=== PATIENT | female | born 1975 | race African-American/Black ===

== ENCOUNTER 2016-06-13 14:16 | Emergency (ER) | payer OTHER ==
[~2016-06-13] VITALS: Ht 170.2 cm; Wt 81.2 kg
[~2016-06-13 14:16] MED LIST: FIORIC PO; TRUVTAB2 PO; [UNRECOGNIZED DRUG - CODE] PO
[2016-06-13 14:26] VITALS: BP 119/83; PULSE 100; RESP 18; TEMP 99; O2SAT 98
[2016-06-13] MEDS ORDERED: INTE100T PO (14:40)
[2016-06-13] MEDS ORDERED: EMTR1TAB5 PO (14:40)
[2016-06-13] MEDS ORDERED: PROCHLORPERAZINE INJ 10 MG/2 ML VIAL IVP ONE (14:45)
[2016-06-13] MEDS ORDERED: SODIUM CHLORIDE 0.9% FLUSH 5 ML FLUSH IVF PRN (14:45)
[2016-06-13] MEDS ORDERED: diphenhydrAMINE HCL 50 MG/ML VIAL IVP ONE (14:45)
--- NOTE | 2016-06-13 15:06 | PD ---
HPI . Headache Chief Complaint: Headache Time Seen by Provider: 14:31 Travel History International Travel<30 days: No Contact w/Intl Traveler<30days: No Traveled to known affect area: No History of Present Illness HPI Patient presents complaining with headache. She states that she has daily headaches associated with dizziness which she describes as a spinning sensation. She reports exacerbation of her headaches when she suffered a head injury over a year ago. She states that her headaches are worse on some days than others. She states that it has been worse the last 3 days. It is associated with photophobia. She has not tried any fuqe-qtt-zkichgd medication for her headache. She states that the dizziness is worse when she moves her head and better if she is still. [facility] Past Medical History Autoimmune Disease: Yes (HIV+/2007) Blood Disorders: No Anxiety: No Depression: No Cancer: No Cardiovascular Problems: No Chemotherapy: No Diminished Hearing: No Endocrine: No Genitourinary: No Headaches: Yes Immune Disorder: Yes (HIV) Musculoskeletal: No Neurologic: Yes (SCIATICA) Psychiatric: No Reproductive: No Respiratory: No Immunizations Current: Yes Migraines: Yes Radiation Therapy: No Tetanus Vaccination: < 5 Years Influenza Vaccination: Yes ?: Not : 6 Para: 4 : 2 Ovarian Cysts: Yes (LEFT OVARY REMOVED 2003) Tubal Ligation: Yes Past Surgical History Abdominal Surgery: Yes ([facility] APPY 08-06-09) Appendectomy: Yes Hysterectomy: Yes Other Surgery: Yes Social History Alcohol Use: Yes (SOCIAL) Tobacco Use: Yes (1-2 CIG DAILY) Substance Use: No Allergies-Medications (Allergen,Severity, Reaction): Coded Allergies: No Known Allergies (Verified , 06/13/16) Reported Meds & Prescriptions Reported Meds & Active Scripts Active Reported Intelence (Etravirine) 100 Mg Tab 100 Mg PO DAILY Truvada (Emtricitabine-Tenofovir Disoproxil Fumarate) 100-150 Mg Tab 1 Tab PO DAILY Review of Systems Except as stated in HPI: all other systems reviewed are Neg General / Constitutional: No: Fever, Chills Eyes: Positive: Photophobia, No: Blurred Vision HENT: Positive: Headaches, Vertigo Cardiovascular: No: Chest Pain or Discomfort Gastrointestinal: Positive: Nausea, No: Vomiting, Diarrhea Physical Exam Narrative GENERAL: Tearful. SKIN: Warm and dry. HEAD: Atraumatic. Normocephalic. EYES: Pupils equal and round. Extraocular motions are intact. ENT: No nasal bleeding or discharge. Mucous membranes pink and moist. NECK: Trachea midline. Neck is supple. CARDIOVASCULAR: Regular rate and rhythm. RESPIRATORY: No accessory muscle use. MUSCULOSKELETAL: No obvious deformities. No edema. NEUROLOGICAL: Awake and alert. No obvious cranial nerve deficits. Motor grossly within normal limits. Normal speech. Xhdjoh-wgod-hfcfpp exam was intact. PSYCHIATRIC: Appropriate mood and affect; insight and judgment normal. Data Data Last Documented VS Vital Signs Date Time Temp Pulse Resp B/P Pulse Ox O2 Delivery O2 Flow Rate FiO2 06/13/16 14:26 99.0 100 18 119/83 98 Orders Iv Access Insert/Monitor (06/13/16 14:31) Sodium Chloride 0.9% Flush (Ns Flush) (06/13/16 14:45) Prochlorperazine Inj (Compazine Inj) (06/13/16 14:45) Diphenhydramine Inj (Benadryl Inj) (06/13/16 14:45) MDM Medical Decision Making Medical Screen Exam Complete: Yes Emergency Medical Condition: Yes Medical Record Reviewed: Yes (patient was seen here in November 2015 with virtually identical complaints. She had a head CT done at that time which was negative. I was unable to find a record related to a visit for a head injury.) Differential Diagnosis Differential diagnosis of headache includes but is not limited to migraine, muscle contraction headache, brain tumor, brain bleed Narrative Course Patient presents complaining of headache. She describes daily headaches which have been worse the last 3 days. Patient reports improvement in her headache. Diagnosis Primary Impression: Headache Qualified Code: R51 - Chronic intractable headache, unspecified headache type Additional Impression: Vertigo Patient Instructions: General Headache (ED), General Instructions, Vertigo (DC) Med/Other Pt SpecificInfo: Prescription(s) given Scripts Meclizine 25 Mg Tab25 Mg PO TID PRN (VERTIGO) #30 TAB Ref 0 Prov:Melissa Meadows MD 06/13/16 Sadcdrzoil-Wvkdhqwzhfdxb-Qktskohu (Fioricet)50-300-40 Mg Cap1 Cap PO Q4H PRN ( HEADACHE) #12 CAP Ref 0 Prov:Melissa Meadows MD 06/13/16 Disposition: 01 DISCHARGE HOME Condition: Stable Melissa Meadows MD Jun 13, 2016 15:06
[2016-06-13] MEDS ORDERED: BUTA1CAP PO (16:19)
[2016-06-13] MEDS ORDERED: MECL-62 PO (16:19)
[2016-06-13 17:23] VITALS: BP 120/84
== END 2016-06-13 17:25 | disposition home or self-care (01) ==
LOC: PHED 14:16
DX: R51 Headache (principal); R42 Dizziness and giddiness; H53.149 Visual discomfort, unspecified; F17.210 Nicotine dependence, cigarettes, uncomplicated; Z21 Asymptomatic human immunodeficiency virus [HIV] infection status
CPT/HCPCS: 96374; 96375; 99283; J0780; J1200

== ENCOUNTER 2017-03-15 19:45 | Emergency (ER) | payer OTHER ==
[~2017-03-15] VITALS: Ht 170.2 cm; Wt 75.6 kg
[~2017-03-15 19:45] MED LIST changes: +BUTA1CAP PO; +EMTR1TAB5 PO; -FIORIC PO; +MECL-62 PO; -TRUVTAB2 PO
[2017-03-15 19:52] VITALS: BP 151/97; PULSE 91; RESP 22; TEMP 98.9; O2SAT 97
[2017-03-15] MEDS ORDERED: TOPI100 PO (20:05)
[2017-03-15] MEDS ORDERED: ZITHTAB PO (20:12)
[2017-03-15] MEDS ORDERED: VENTAER INH (20:12)
--- NOTE | 2017-03-15 20:17 | PD ---
HPI Chief Complaint: Respiratory Symptoms Time Seen by Provider: 20:03 Travel History International Travel<30 days: Yes Contact w/Intl Traveler<30days: Yes Name of Country Traveled to: [facility] Traveled to known affect area: No History of Present Illness HPI The patient was seen and examined in the presence of the nurse. This patient complains of some congestion and runny nose and wheezing and dry cough. No shortness of breath or fever. She has history of HIV she reports is well- controlled on antivirals. Smoking 3 weeks ago. No alleviating factors PFSH Past Medical History Autoimmune Disease: Yes (HIV+/2007) Blood Disorders: No Anxiety: No Depression: No Cancer: No Cardiovascular Problems: No Chemotherapy: No Diminished Hearing: No Endocrine: No Genitourinary: No Headaches: Yes Immune Disorder: Yes (HIV) Musculoskeletal: No Neurologic: Yes (SCIATICA) Psychiatric: No Reproductive: No Respiratory: No Immunizations Current: Yes Migraines: Yes Radiation Therapy: No : 6 Para: 4 : 2 Ovarian Cysts: Yes (LEFT OVARY REMOVED 2003) Tubal Ligation: Yes Past Surgical History Abdominal Surgery: Yes ([facility] APPY 08-06-09) Appendectomy: Yes Hysterectomy: Yes Other Surgery: Yes Social History Alcohol Use: Yes (SOCIAL) Tobacco Use: Yes (1-2 CIG DAILY) Substance Use: No Allergies-Medications (Allergen,Severity, Reaction): Coded Allergies: No Known Allergies (Verified Adverse Reaction, Unknown, 03/15/17) Reported Meds & Prescriptions Reported Meds & Active Scripts Active Zithromax Z-Cabrera (Azithromycin) 250 Mg Dspk 250 Mg PO DIRECTED 500 MG (2 tabs) day 1, then 1 tab days 2-5. Ventolin Hfa 18 GM Inh (Albuterol Sulfate) 90 Mcg/Act Aer 2 Puff INH Q6H PRN Meclizine (Meclizine HCl) 25 Mg Tab 25 Mg PO TID PRN Reported Topamax (Topiramate) 100 Mg Tab 100 Mg PO BID Intelence (Etravirine) 100 Mg Tab 100 Mg PO DAILY Truvada (Emtricitabine-Tenofovir Disoproxil Fumarate) 100-150 Mg Tab 1 Tab PO DAILY Review of Systems General / Constitutional: No: Fever Cardiovascular: No: Chest Pain or Discomfort Respiratory: Positive: Cough Gastrointestinal: No: Vomiting Physical Exam Narrative GENERAL: Well-nourished, well-developed patient in no apparent distress. SKIN: Focused skin assessment reveals no rash and nodules. Skin is Warm and dry. HEAD: Atraumatic. Normocephalic. EYES: Pupils equal and round. No scleral icterus. No injection or drainage. ENT: No nasal bleeding or discharge. Mucous membranes pink and moist. NECK: Trachea midline. No JVD. CARDIOVASCULAR: Regular rate and rhythm. No murmur appreciated. RESPIRATORY: No accessory muscle use. Clear to auscultation. Breath sounds equal bilaterally. GASTROINTESTINAL: Abdomen soft, non-tender, nondistended. Hepatic and splenic margins not palpable. MUSCULOSKELETAL: No obvious deformities. No clubbing. No cyanosis. No edema. NEUROLOGICAL: Awake and alert. No obvious cranial nerve deficits. Motor grossly within normal limits. Normal speech. PSYCHIATRIC: Appropriate mood and affect; insight and judgment normal. Data Data Last Documented VS Vital Signs Date Time Temp Pulse Resp B/P (MAP) Pulse Ox O2 Delivery O2 Flow Rate FiO2 03/15/17 19:52 98.9 91 22 151/97 (115) 97 MDM Medical Decision Making Medical Screen Exam Complete: Yes Emergency Medical Condition: Yes Medical Record Reviewed: Yes Differential Diagnosis Bronchitis, pneumonia, URI Narrative Course I have reviewed the patient's electronic medical record. Patient is clinically well. Saturations are 100% room air with clear lungs. She is afebrile Likely has viral bronchitis but given her immune system disease have written her a course of Zithromax Inhaler prescribed to use as needed Diagnosis Primary Impression: Acute bronchitis Qualified Codes: J20.9 - Acute bronchitis, unspecified Additional Impression: Wheezing Additional Instructions: The patient was advised to follow up with their physician and return if they worsen. Med/Other Pt SpecificInfo: Prescription(s) given Scripts Azithromycin (Zithromax Z-Cabrera) 250 Mg Dspk 250 MG PO DIRECTED for Infection, #1 DSPK 0 Refills 500 MG (2 tabs) day 1, then 1 tab days 2-5. Prov: Sanford Bowman MD 03/15/17 Albuterol 18 GM Inh (Ventolin Hfa 18 GM Inh) 90 Mcg/Act Aer 2 PUFF INH Q6H Y for SHORTNESS OF BREATH, #1 INHALER 0 Refills Prov: Sanford Bowman MD 03/15/17 Disposition: 01 DISCHARGE HOME Condition: Stable Sanford Bowman MD Mar 15, 2017 20:17
[2017-03-15 20:20] VITALS: BP 160/95; PULSE 87; RESP 16; RESP 18; TEMP 98.9; O2SAT 100
[2017-03-15] MEDS ORDERED: INTE200T2 PO (20:48)
[2017-03-15] MEDS ORDERED: LYRI100C PO (20:48)
[2017-03-15] MEDS ORDERED: OXYC-396 PO (20:48)
[2017-03-15] MEDS ORDERED: TRAZ100T10 PO (20:48)
[2017-03-15] MEDS ORDERED: ESCI10TA PO (20:48)
[2017-03-15] MEDS ORDERED: ABIL10TA8 PO (20:48)
== END 2017-03-15 20:42 | disposition home or self-care (01) ==
LOC: PHED 19:45
DX: J20.9 Acute bronchitis, unspecified (principal); R06.2 Wheezing; Z21 Asymptomatic human immunodeficiency virus [HIV] infection status; Z72.0 Tobacco use
CPT/HCPCS: 99284